=== PATIENT | female | born 1945 | race Caucasian/White ===

== ENCOUNTER → 2016-10-22 | Outpatient (CLI) | payer BC | END | disposition home or self-care (01) | LOC: C.LABSPEC 13:29 | PROVIDERS: ATTEND Obstetrics & Gynecology | DX: N89.8 Other specified noninflammatory disorders of vagina (principal) ==

== ENCOUNTER → 2016-12-23 | Outpatient (CLI) | payer BC ==
[2016-12-23 13:43] LABS: ESTIMATED AVERAGE GLUCOSE 131 mg/dl; HA1C FLAG Normal (Normal)
[2016-12-23 13:51] LABS: BLOOD UREA NITROGEN 22 mg/dl (7-18); BUN/CREATININE RATIO 18.6 (10-20); CALCIUM 9.3 mg/dl (8.5-10.1); CARBON DIOXIDE 29 mmol/L (21-32); CHLORIDE 107 mmol/L (98-107); CHOLESTEROL 160 mg/dl (0-200); GLUCOSE 97 mg/dl (70-99); SODIUM 142 mmol/L (136-145)
[2016-12-23 14:00] LABS: CHOLESTEROL/HDL RATIO 2.7; HDL CHOLESTEROL 59 mg/dl; TRIGLYCERIDES 117 mg/dl (0-150); VERY LOW DENSITY LIPOPROT CALC 23 mg/dl
== END | disposition home or self-care (01) ==
LOC: C.LABSPEC 12:42
PROVIDERS: ATTEND Internal Medicine
DX: E11.9 Type 2 diabetes mellitus without complications (principal); I10 Essential (primary) hypertension; E78.5 Hyperlipidemia, unspecified

== ENCOUNTER → 2016-12-29 | Outpatient (CLI) | payer BC ==
[2016-12-29 16:16] LABS: RATIO 41.5 mcg/mg (0-30.0)
== END | disposition home or self-care (01) ==
LOC: C.LABSPEC 14:37
PROVIDERS: ATTEND Internal Medicine
DX: E11.9 Type 2 diabetes mellitus without complications (principal)

== ENCOUNTER → 2017-02-19 | Outpatient (CLI) | payer BC ==
--- NOTE | 2017-02-19 16:17 | MAMMOGRAPHY REPORT ---
BILATERAL DIGITAL SCREENING MAMMOGRAM WITH CAD: 02/19/2017 CLINICAL HISTORY: Routine screening. Patient has no complaints. TECHNIQUE: Bilateral CC and MLO views were obtained. Current study was also evaluated with a Compute r Aided Detection (CAD) system. COMPARISON: Comparison is made to exams dated: 02/19/2016 mammogram, 02/15/2015 mammogram, 02/14/2014 m ammogram, 02/10/2013 mammogram, 01/08/2012 mammogram, and 03/27/2011 mammogram - [facility]. BREAST COMPOSITION: There are scattered areas of fibroglandular density in both breasts. FINDINGS: There is evidence of prior surgery within each breast. There is expected architectural dis tortion in each upper outer quadrant, and surgical clips remain in place within the right breast. Th ere is stable nodularity in the upper outer anterior aspect of each breast. Stable benign-appearing calcifications. No new suspicious mass, architectural distortion or cluster of microcalcifications i s seen. IMPRESSION: ACR BI-RADS CATEGORY 1: NEGATIVE There is no mammographic evidence of malignancy. A 1 year screening mammogram is recommended. The pa tient will receive written notification of the results. Approximately 10% of breast cancers are not detected with mammography. A negative mammographic report should not delay biopsy if a clinically suggestive mass is present. Lizbeth Bojorquez M.D. ay/:02/19/2017 13:01:21 Substation Operator Helper: Joy JIMENEZ(Viral)(Patricia)(BD), [facility] letter sent: Normal 1/2 BI-RADS Code: ACR BI-RADS Category 1: Negative
== END | disposition home or self-care (01) ==
LOC: C.MAMM 10:54
PROVIDERS: ATTEND Internal Medicine
DX: Z12.31 Encounter for screening mammogram for malignant neoplasm of breast (principal)

== ENCOUNTER → 2017-05-20 | Outpatient (CLI) | payer BC ==
[2017-05-20 13:43] LABS: BLOOD UREA NITROGEN 19 mg/dl (7-18); BUN/CREATININE RATIO 17.7 (10-20); CALCIUM 9.1 mg/dl (8.5-10.1); CARBON DIOXIDE 29 mmol/L (21-32); CHLORIDE 107 mmol/L (98-107); GLUCOSE 102 mg/dl (70-99); POTASSIUM 3.9 mmol/L (3.5-5.1); SODIUM 142 mmol/L (136-145)
[2017-05-20 13:46] LABS: CHOLESTEROL 172 mg/dl (0-200); CHOLESTEROL/HDL RATIO 2.6; HDL CHOLESTEROL 66 mg/dl; TRIGLYCERIDES 150 mg/dl (0-150); VERY LOW DENSITY LIPOPROT CALC 30 mg/dl
[2017-05-20 14:24] LABS: ESTIMATED AVERAGE GLUCOSE 131 mg/dl; HA1C FLAG Normal (Normal)
== END | disposition home or self-care (01) ==
LOC: C.LABSPEC 12:33
PROVIDERS: ATTEND Internal Medicine
DX: Z00.00 Encounter for general adult medical examination without abnormal findings (principal); E11.9 Type 2 diabetes mellitus without complications; I10 Essential (primary) hypertension; E78.5 Hyperlipidemia, unspecified

== ENCOUNTER → 2017-09-24 | Outpatient (CLI) | payer BC ==
[2017-09-24 12:59] LABS: HEMOGLOBIN A1C 6.1 % (4.5-5.6)
[2017-09-24 17:20] LABS: BLOOD UREA NITROGEN 18 mg/dl (7-18); CARBON DIOXIDE 29 mmol/L (21-32); CHOLESTEROL 193 mg/dl (0-200); GLUCOSE 98 mg/dl (70-99); POTASSIUM 4.2 mmol/L (3.5-5.1); SODIUM 140 mmol/L (136-145)
[2017-09-24 17:23] LABS: LDL CHOLESTEROL (DIRECT) 109 mg/dl
== END | disposition home or self-care (01) ==
LOC: C.LABSPEC 12:14
PROVIDERS: ATTEND Internal Medicine
DX: E78.5 Hyperlipidemia, unspecified (principal); E11.9 Type 2 diabetes mellitus without complications; I10 Essential (primary) hypertension

== ENCOUNTER → 2017-10-02 | Outpatient (CLI) | payer BC ==
--- NOTE | 2017-10-02 15:08 | MAMMOGRAPHY REPORT ---
UNILATERAL RIGHT DIGITAL DIAGNOSTIC MAMMOGRAM TOMOSYNTHESIS WITH CAD AND TARGETED RIGHT ULTRASOUND: CLINICAL HISTORY: The patient reports a burning/tingling sensation involving the right nipple and upp er outer quadrant for approximately one month. She denies any palpable lumps, skin changes, nipple d ischarge, or other complaints. TECHNIQUE: Breast tomosynthesis in addition to standard 2D mammography was performed. Current study was also evaluated with a Computer Aided Detection (CAD) system. Right CC and MLO 2-D and tomosynthe sis images were obtained. COMPARISON: Comparison is made to exams dated: 02/19/2017 mammogram, 02/19/2016 mammogram, 02/15/2015 ma mmogram, 02/14/2014 mammogram, 02/10/2013 mammogram, and 01/08/2012 mammogram - [facility]. BREAST COMPOSITION: There are scattered areas of fibroglandular density in the right breast. FINDINGS: Two square markers micheline the site of the burning/tingling in the right breast pointed out b y the patient. There are no suspicious masses, calcifications, or areas of architectural distortion noted in the right breast. There has been no significant interval change compared to prior exams. T here are stable postsurgical changes from surgical excision in the right upper outer quadrant, includ ing stable architectural distortion and surgical clips at the surgical bed. Small circumscribed pita gn-appearing masses are seen scattered throughout the right breast, not significantly changed and lik myra represent small cysts. Scattered benign-appearing right breast calcifications are also stable. Targeted ultrasound was performed of the area of the tingling/burning sensation pointed out by the pa tient involving the right upper outer quadrant and right subareolar region. There are expected post surgical changes at the surgical bed in the upper outer quadrant. In the right 10:00 periareolar annie ast, there is a round circumscribed hypoechoic mass with posterior acoustic enhancement measuring 4 x 3 mm, and an adjacent anechoic circumscribed 5 x 3 mm mass; these correspond with some of the stable nodularity mammographically which are benign given the stability and likely represent simple/complic ated cysts. There are no suspicious masses or other suspicious sonographic abnormalities evident. IMPRESSION: ACR BI-RADS CATEGORY 2: BENIGN, TARGETED ULTRASOUND ACR BI-RADS CATEGORY 2: BENIGN No suspicious mammographic or sonographic abnormality to explain right breast burning/tingling descri bed by the patient. There is no mammographic or targeted sonographic evidence of malignancy. Recomm end clinical follow-up for right breast symptoms, and recommend routine bilateral screening mammogram s due February 2018. The patient has been verbally notified of the results. Approximately 10% of breast cancers are not detected with mammography. A negative mammographic report should not delay biopsy if a clinically suggestive mass is present. Jessenia Leach M.D. ah/:10/02/2017 10:01:01 Touch Up Painter: Juana Watts, [facility] letter sent: Normal 1/2 BI-RADS Code: ACR BI-RADS Category 2: Benign Ultrasound BI-RADS: ACR BI-RADS Category 2: Benign
== END | disposition home or self-care (01) ==
LOC: C.MAMM 09:02
PROVIDERS: ATTEND Internal Medicine
DX: N64.59 Other signs and symptoms in breast (principal)

== ENCOUNTER → 2018-02-04 | Outpatient (CLI) | payer BC ==
[2018-02-04 14:20] LABS: BLOOD UREA NITROGEN 19 mg/dl (7-18); CALCIUM 9.1 mg/dl (8.5-10.1); CARBON DIOXIDE 30 mmol/L (21-32); CHOLESTEROL 157 mg/dl (0-200); CREATININE 1.19 mg/dl (0.60-1.20); GLUCOSE 97 mg/dl (70-99); LDL CHOLESTEROL (DIRECT) 85 mg/dl; POTASSIUM 4.2 mmol/L (3.5-5.1); SODIUM 140 mmol/L (136-145)
[2018-02-05 06:09] LABS: HEMOGLOBIN A1C 6.1 % (4.5-5.6)
== END | disposition home or self-care (01) ==
LOC: C.LABSPEC 12:26
PROVIDERS: ATTEND Internal Medicine
DX: E11.9 Type 2 diabetes mellitus without complications (principal); I10 Essential (primary) hypertension; E78.5 Hyperlipidemia, unspecified

== ENCOUNTER → 2018-02-08 | Outpatient (CLI) | payer BC ==
--- NOTE | 2018-02-09 15:42 | CODING QUERY NO DIAGNOSIS ---
TREATMENT RENDERED WITHOUT A DIAGNOSIS 46 To promote full compliance with coding requirements relating to patient care, physician participation is requested in all cases of auditing coder uncertainty. Please assist us with providing a diagnosis/symptom for the test(s) below: A diagnosis/symptom was not documented on your Order. A valid diagnosis/symptom is required to bill all insurances. Please remember that we are unable to code a diagnosis of rule out, probable, possible, questionable, or suspected. DOS 02/08/18 Tests that require a diagnosis: * URINE MICROALBUMIN DIAGNOSIS: * CREATININE RATIO DIAGNOSIS: Provider Signature: Date: Thank you [facility] Information Management Once completed, please kindly fax back to [phone] For questions please call [phone]
== END | disposition home or self-care (01) ==
LOC: C.LABSPEC 13:36
PROVIDERS: ATTEND Internal Medicine
DX: E11.9 Type 2 diabetes mellitus without complications (principal)

== ENCOUNTER 2023-01-02 12:38 | Observation (INO) ==
--- NOTE | 2023-01-02 13:30 | XRay Report ---
XR chest 1V portable HISTORY: Hypertension COMPARISON: None. FINDINGS: The lungs are clear. The cardiac silhouette is mildly enlarged. No focal lung consolidation s to suggest a pneumonia. No evidence for pulmonary edema. There are surgical clips within the right chest wall. IMPRESSION: Mild cardiomegaly. Otherwise, no acute process within the chest. ACT 112: Negative or not required by law. Electronically signed by: Florentino Castillo M.D. 01/02/2023 1:28 PM
[2023-01-02 13:53] LABS: Basophils # (auto) 0.06 K/uL (0-0.2); Basophils % (auto) 0.5 %; Eosinophils # (auto) 0.49 K/uL (0-0.50); Eosinophils % (auto) 4.3 %; Hematocrit (blood only) 45.5 % (37.0-47.0); Hemoglobin 14.8 g/dl (12.0-16.0); Immature Granulocytes # (auto) 0.07 K/uL (0.01-0.20); Immature Granulocytes % (auto) 0.6 %; Lymphocytes # (auto) 2.79 K/uL (1.2-3.4); Lymphocytes % (auto) 24.6 %; Mean Corpuscular Hemoglobin 30.3 pg (25.0-34.0); Mean Corpuscular Hgb Conc 32.5 g/dL (32.0-36.0); Mean Platelet Volume 9.7 fL (9.4-12.4); Monocytes # (auto) 0.71 K/uL (0.11-0.59); Monocytes % (auto) 6.3 %; Neutrophils % (auto) 63.7 %; Platelet Count 258 K/uL (130-400); RDW Coefficient of Variation 13.7 % (11.5-14.5); RDW Standard Deviation 46.7 fL (36.4-46.3); Red Blood Count 4.89 M/uL (4.20-5.40); White Blood Count 11.32 K/ul (4.8-10.8)
[2023-01-02 13:54] LABS: Appearance Urine Clear (Clear); Bacteria Urine Automated Negative (Negative); Bilirubin Urine Negative (Negative); Blood Urine 1+ (Negative); Color Urine Yellow; Epithelial Cell Urine Auto >30 /lpf (0-5); Glucose Urine UA Negative (Negative); Ketones Urine Negative (Negative); Leukocyte Esterase Urine Trace (Negative); Nitrite Urine Negative (Negative); Specific Gravity Urine 1.014 (1.000-1.030); Urobilinogen Urine Negative (Negative); pH Urine 7.5 (4.5-7.5)
[2023-01-02 14:00] LABS: Protein Urine 3+ (Negative)
[2023-01-02 14:09] LABS: Albumin Globulin Ratio 1.3 (0.9-2); Albumin Level 4.1 gm/dl (3.4-5.0); BUN Creatinine Ratio 17.9 (10-20); Bilirubin,Total 0.5 mg/dl (0.2-1.0); Calcium 9.6 mg/dl (8.6-10.3); Creatinine Clr Calc Pharmacy 46.5 ml/min; Est GFR (African American) 55.3 ml/min; Est GFR (Non-African American) 47.7 ml/min; Globulin 3.2 gm/dl (2.5-4.0); Potassium 4.1 mmol/L (3.5-5.1); Total Protein 7.3 gm/dl (6.0-8.3)
[2023-01-02 14:13] LABS: Troponin I High Sensitivity 9.6 pg/ml (0-14)
[2023-01-02] MEDS ORDERED: LABETALOL HCL IV 5 MG/ML 20ML IV STA ×2 (14:32→15:42)
--- NOTE | 2023-01-02 16:37 | Emergency Department Note ---
Impression & Plan Severe hypertension ED Provider Note INFORMANT: Patient ED PROVIDER(S): Luisito Dang MD CHIEF COMPLAINT: Hypertension PLAN: Disposition: Admitted Condition: Good Outpatient prescription management: none Referral: None MEDICAL DECISION MAKING: Patient presented emergency ferment with drastically elevated blood pressures. Thankfully she did not have any neurologic findings. Work-up was initiated. The patient had a nonfocal physical examination. Her twelve-lead ECG showed a sinus rhythm at 75 bpm without ischemia. Her CBC and chemistry panel along with cardiac troponin were negative for any gross abnormalities. Given the marked elevation of her blood pressure 240/140 range she was given a dose of IV labetalol and monitored. Her blood pressure did improve with this however it started to trend back up and went to 220/134. Patient was given a second dose of IV labetalol. Discussed the issue with the significant elevation of blood pressures and the fact that further management in the hospital is appropriate. Patient and family were in agreement. Consultation was [facility] with [facility]. Case was discussed and diagnostics were reviewed. Dr. West requested a renal artery duplex be ordered and this was done. Patient will be admitted for further management. Discussed with labor relations manager. Requires admission After review of the information above and other included data, I feel the patient disposition. Triage Nursing notes reviewed and agree them. Vital Signs: reviewed and remarkable for marked hypertension Prior /Outside records reviewed: none Differential diagnosis: Benign hypertension, hypertensive emergency, cardiovascular pathology, toxicologic, pheochromocytoma, electrolyte abnormality, renal disease, endorgan damage, as well as other pathologies. Diagnostics, as interpreted by me: EC Lead ECG performed and revealed Normal sinus rhythm at 75, normal [place], QRS normal. No elevation or depression. No PACs or PVCs Cardiac Monitoring: Cardiac monitoring ordered by me: The patient was placed on continuous cardiac monitoring and observed. It revealed a normal sinus rhythm at 83 beats per minute without ectopy or evidence of dysrhythmia. Medical decision rules: none Imaging studies: Chest x-ray. Findings: A chest x-ray was performed and revealed no pneumothorax, effusion, infiltrate, pulmonary edema, free air under the diaphragm, or wide mediastinum. Impression: No acute disease. HPI: The patient is a 77year old female who presents to the Emergency Room with complaints of hypertension. Was found at her primary care office when she went in for her 6-month visit. Patient states she has not taken her blood patient since her last well visit 6 months ago. She is on metoprolol and losartan. She has not missed any doses. The patient also notes the following associated symptoms, none. The patient has was given no additional medication for relieving factors. Current pain is rated as 0/10. Patient's blood pressure in the office was noted to be in the 240/140 range. Pt denies LOC, headache, fevers, chills, diaphoresis, visual changes, neck pain, chest pain, breathing difficulties, nausea, vomiting, abdominal pain, back pain, melena, hematochezia, new urinary symptoms, numbness, weakness, lymphadenopathy, rash, or other complaints. PAST MEDICAL HISTORY: See Below, high blood pressure, diabetes PAST SURGICAL HISTORY: See Below, SOCIAL HISTORY: See Below, non-smoker HOME MEDICATIONS: See Below ALLERGIES: See Below VITALS: See Below PHYSICAL EXAMINATION: GENERAL: Awake, alert, well-appearing, in no distress HENT: Normocephalic, atraumatic. Oropharynx unremarkable. EYES: Normal conjunctiva. Sclera non-icteric. PERRLA. EOMI. NECK: Inspection normal. Non-tender. Supple. No nuchal rigidity. FROM. No masses. RESPIRATORY: Clear to auscultation. No wheezes. No rales. Normal respiratory effort. CARDIAC: Normal rate. Normal rhythm. No murmurs. No rubs. Extremities warm and well perfused. Pulses equal. No JVD. GI: Soft, non-distended. No tenderness to palpation. No rebound or guarding. No masses. RECTAL: Deferred. MUSCULOSKELETAL: Atraumatic. Chest examination reveals no tenderness. The back is symmetrical on inspection without obvious abnormality. There is no CVA tenderness to palpation. No joint edema. LOWER EXTREMITIES: Calves are equal size bilaterally and non-tender. No edema. No discoloration. NEURO: Normal sensorium. No sensory or motor deficits noted. Speech normal. Normal rapid alternating movements. Cranial nerves II through XII intact. SKIN: No rash or jaundice noted. CRITICAL CARE: I have personally spent greater than 30 minutes of critical care time in the direct management of this patient. This includes bedside care, interpretation of diagnostic studies, and testing, discussion with consultants, patient, and family members, and other required patient management activities. These minutes are in excess of all separately billable procedures. Past Med/Surg History Surgical History (Updated 01/03/20 @ 12:14 by David Luna MD) History of dilation and curettage History of lumpectomy of right breast Family History (Updated 01/03/20 @ 12:19 by David Luna MD) Father Myocardial infarction Brother Myocardial infarction Denies family history of Ovarian cancer Breast cancer Colorectal cancer Social History (Updated 01/03/20 @ 12:19 by David Luna MD) Smoking Status: Never smoker Hx Alcohol Use: No Hx Substance Use: No marital status: / current occupational status: retired Feels Safe at Home: Yes Allergies Allergies Allergy/AdvReac Type Severity Reaction Status Date / Time diphenhydramine Allergy Unknown Verified 03/19/22 10:39 Home Meds Home Medications Medication Instructions Recorded Confirmed azelastine 137 mcg (0.1 %) nasal intranasal .Two sprays in each 01/03/20 03/19/22 spray aerosol nostril twice daily as needed PRN fluticasone propionate 50 intranasal .USE 2 SPRAYS IN EACH 01/03/20 03/19/22 mcg/actuation nasal NOSTRIL ONCE DAILY spray,suspension meclizine 12.5 mg tablet mg PO .TAKE 1-2 TABLETS Q 8 HOURS 01/03/20 03/19/22 NEEDED FOR VERTIGO. PRN metformin 1,000 mg tablet mg PO .TAKE 1 TABLET TWICE DAILY. 01/03/20 03/19/22 metoprolol tartrate 50 mg tablet mg PO .TAKE 1 TABLET EVERY 12 01/03/20 03/19/22 HOURS. multivit with min-folic 1 tab PO DAILY 01/03/20 03/19/22 acid-lutein 400 mcg-250 mcg chewable tablet (Centrum Silver) omega-3 fatty acids 1,000 mg 1,000 mg PO DAILY 01/03/20 03/19/22 capsule (Fish Oil Concentrate) oxybutynin chloride 5 mg tablet mg PO 01/03/20 03/19/22 pravastatin 20 mg tablet mg PO .TAKE 1 TABLET DAILY. 01/03/20 03/19/22 aspirin 81 mg chewable tablet 1 tab PO DAILY 03/19/22 03/19/22 Results & Data (ED) Vital Signs Vital Signs - 24 hr 01/02/23 12:47 01/02/23 14:55 Temperature 36.6 C Temperature Source Temporal Artery Scan Pulse Rate 81 84 Pulse Rhythm Regular Pulse Strength Normal Respiratory Rate 20 Respiratory Effort / Characteristics Non-Labored Spontaneous Respiratory Depth Normal Respiratory Pattern Regular Blood Pressure 224/144 H Blood Pressure Mean 170 Blood Pressure Position Sitting Pulse Oximetry 96 Oxygen Delivery Method Room Air Sepsis Recent Fever Within 48 Hours No Sepsis New/Unexplained Change in Mental Status N/A Sepsis Action Taken by Nursing No Action Required Laboratory Data 01/02/23 13:26 01/02/23 13:26 Lab Results 01/02/23 01/02/23 01/02/23 Range/Units 13:26 13:26 13:26 WBC 11.32 H (4.8-10.8) K/ul RBC 4.89 (4.20-5.40) M/uL Hgb 14.8 (12.0-16.0) g/dl Hct 45.5 (37.0-47.0) % MCV 93.0 (80.0-100.0) fL MCH 30.3 (25.0-34.0) pg MCHC 32.5 (32.0-36.0) g/dL RDW Std Deviation 46.7 H (36.4-46.3) fL RDW Coeff of Sung 13.7 (11.5-14.5) % Plt Count 258 (130-400) K/uL MPV 9.7 (9.4-12.4) fL Immature Gran % (Auto) 0.6 % Neut % (Auto) 63.7 % Lymph % (Auto) 24.6 % Reynolds % (Auto) 6.3 % Eos % (Auto) 4.3 % Baso % (Auto) 0.5 % Neut # (Auto) 7.20 H (1.40-6.50) K/uL Lymph # (Auto) 2.79 (1.2-3.4) K/uL Reynolds # (Auto) 0.71 H (0.11-0.59) K/uL Eos # (Auto) 0.49 (0-0.50) K/uL Baso # (Auto) 0.06 (0-0.2) K/uL Immature Gran # (Auto) 0.07 (0.01-0.20) K/uL Sodium 142 (136-145) mmol/L Potassium 4.1 (3.5-5.1) mmol/L Chloride 105 (98-107) mmol/L Carbon Dioxide 29 (21-32) mmol/L Anion Gap 8 (3-11) BUN 20 (6-23) mg/dl Creatinine 1.12 (0.6-1.2) mg/dl Est Cr Clr Drug Dosing 46.5 ml/min Est GFR ( Amer) 55.3 ml/min Est GFR (Non-Af Amer) 47.7 ml/min BUN/Creatinine Ratio 17.9 (10-20) Glucose 104 H (70-99(Fasting)) mg/dl Calcium 9.6 (8.6-10.3) mg/dl Total Bilirubin 0.5 (0.2-1.0) mg/dl AST 29 (13-39) U/L ALT 28 (7-52) U/L Alkaline Phosphatase 88 (34-104) U/L Troponin I High Sens 9.6 (0-14) pg/ml Total Protein 7.3 (6.0-8.3) gm/dl Albumin 4.1 (3.4-5.0) gm/dl Globulin 3.2 (2.5-4.0) gm/dl Albumin/Globulin Ratio 1.3 (0.9-2) Urine Color Yellow Urine Appearance Clear (Clear) Urine pH 7.5 (4.5-7.5) Ur Specific [place] 1.014 (1.000-1.030) Urine Protein 3+ H (Negative) Urine Glucose (UA) Negative (Negative) Urine Ketones Negative (Negative) Urine Blood 1+ H (Negative) Urine Nitrite Negative (Negative) Urine Bilirubin Negative (Negative) Urine Urobilinogen Negative (Negative) Ur Leukocyte Esterase Trace H (Negative) Urine WBC (Auto) 5-10 H (0-5) /hpf Urine RBC (Auto) 10-30 H (0-4) /hpf U Hyaline Cast (Auto) 1-5 (0-5) /lpf U Epithel Cells (Auto) >30 H (0-5) /lpf Urine Bacteria (Auto) Negative (Negative) Administered Medications Discontinued Medications Labetalol HCl (Labetalol Hcl Iv 5 Mg/Ml 20ml) 10 mg IV NOW STA Stop: 01/02/23 14:33 Last Admin: 01/02/23 14:45 Dose: 10 mg Documented By: SANJAY Co-signed By: SUNSHINE Labetalol HCl (Labetalol Hcl Iv 5 Mg/Ml 20ml) 10 mg IV NOW STA Stop: 01/02/23 15:43 Last Admin: 01/02/23 15:52 Dose: 10 mg Documented By: KAVIN Co-signed By: TAN Imaging Data Radiologist's Impression: Chest X-Ray 01/02/23 13:00 XR chest 1V portable HISTORY: Hypertension COMPARISON: None. FINDINGS: The lungs are clear. The cardiac silhouette is mildly enlarged. No focal lung consolidations to suggest a pneumonia. No evidence for pulmonary edema. There are surgical clips within the right chest wall. IMPRESSION: Mild cardiomegaly. Otherwise, no acute process within the chest. ACT 112: Negative or not required by law. Electronically signed by: Florentino Castillo M.D. 01/02/2023 1:28 PM Discharge Plan Visit Data Chief Complaint: Hypertension Stated Complaint: HIGH BP, REF BY DR LEON ED Provider: Luisito Dang Discharge Problem: Severe hypertension Forms Stand Alone Forms: My [facility] Prescriptions Prescriptions: No Action Centrum Silver 400-250 mcg tablet,chewable 1 tab PO DAILY omega-3 fatty acids [Fish Oil Concentrate] 1,000 mg capsule 1,000 mg PO DAILY meclizine 12.5 mg tablet PO .TAKE 1-2 TABLETS Q 8 HOURS NEEDED FOR VERTIGO. PRN fluticasone propionate 50 mcg/actuation spray,suspension INTNAS .USE 2 SPRAYS IN EACH NOSTRIL ONCE DAILY azelastine 137 mcg (0.1 %) aerosol,spray INTNAS .Two sprays in each nostril twice daily as needed PRN oxybutynin chloride 5 mg tablet PO metoprolol tartrate 50 mg tablet PO .TAKE 1 TABLET EVERY 12 HOURS. pravastatin 20 mg tablet PO .TAKE 1 TABLET DAILY. metformin 1,000 mg tablet PO .TAKE 1 TABLET TWICE DAILY. aspirin 81 mg tablet,chewable 1 tab PO DAILY Referrals Referrals: Joy Curiel MD [Primary Care Provider] -
[2023-01-02] MEDS ORDERED: hydrALAZINE HCL 20 MG/ML VIAL IV STA (17:03)
--- NOTE | 2023-01-02 17:09 | History & Physical Report ---
Date of Service January 02, 2023 Assessment & Plan (1) Severe hypertension: Plan: Asymptomatic severe hypertension, Acute/Unstable - Observation to PCU - Heart healthy (low salt)/DMT2 diet has been ordered - VS per protocol - CMP reviewed, renal function preserved, potassium WNL - Initially given labetolol 10mg IV x2 doses in ED, will give a stat dose of hydralazine 10mg IV x1 now - Increase Losartan to 100mg daily to start tomorrow morning - Continue Metoprolol Tartrate 75mg BID - Add Hydrochlorothiazide 25mg daily to start in AM - Renal artery duplex ordered as requested, results pending - Obtain carotid artery duplex to exclude carotid artery stenosis - Chest pain free and EKG w/o acute ischemic changes - Hs troponin reviewed, normal at 9.6 (2) Diabetes mellitus: Plan: Chronic/stable - Hemoglobin a1c from November 2021 was 6.2% - Controlled on Metformin 1000mg BID, continue - Check BSG AC and HS, add coverage for BSG >180 (3) Hyperlipidemia: Plan: Chronic/stable - Continue statin therapy (4) Leukocytosis: Plan: Acute/unstable - CBC reviewed, minimal elevation of wbc at 11.32 with left shift - UA does not appear grossly infected, appears contaminated and has chronic frequency but no dysuria, hematuria, odor, etc. - CXR shows mild cardiomegaly w/o other acute cardiopulmonary abnormalities and pt has no respiratory symptoms - Repeat in AM Plan Provide DVT ppx with Lovenox. AM labs have been ordered. Above plan of care has been d/w Dr. West who has also seen and evaluated this patient. Further orders will be implemented as warranted. History of Present Illness Chief Complaint: elevated BP Primary Care Provider: Joy Curiel MD Sabrina Medina is a 77 yo F with a pmhx of HTN, DMT2, h/o acoustic neuroma, and HLD who presents to the ER today sent from her PCP's office due to elevated/uncontrolled blood pressure. Patient reports that she went for her routine check up in the office today, states that they "didn't like my blood pressure" and sent her here. Upon arrival patient was noted to have a BP of 224/144 mmHg. Patient notes that she does not routinely check her blood pressure at home and would've last had it checked 6 months ago when she saw her PCP. She denies increased salt intake, weight gain, or swelling in her legs. She denies headache, chest pain, palpitations, dyspnea, focal weakness, numbness or tingling. She does have a h/o of an acoustic neuroma that was treated with radiation and is being monitored periodically via serial MRIs. She has a h/o HTN that is managed with Metoprolol Tartrate 75mg BID and Losartan 50mg daily. She has never been on a diuretic. After two doses of Labetolol 10mg IV in the ER, her BP remains persistently elevated in the 220s systolic. A renal artery duplex has been ordered and results are pending. She has been referred for admission to the hospitalist service for further treatment. Allergies Allergy/AdvReac Type Severity Reaction Status Date / Time diphenhydramine Allergy Anaphylaxis Verified 01/02/23 17:25 Home Medications Medication Instructions Recorded Confirmed Type oxybutynin chloride 5 mg tablet 5 mg PO QPM 01/03/20 01/02/23 History aspirin 81 mg tablet,delayed 81 mg PO QPM 01/02/23 01/02/23 History release losartan 50 mg tablet 50 mg PO DAILY 01/02/23 01/02/23 History metformin 500 mg tablet 500 mg PO BID 01/02/23 01/02/23 History metoprolol tartrate 50 mg tablet 75 mg PO BID 01/02/23 01/02/23 History multivitamin 1 tab PO QAM 01/02/23 01/02/23 History omega 2-gkq-inz-fish oil 1,000 mg 1 cap PO BID 01/02/23 01/02/23 History (120 mg-180 mg) capsule (Fish Oil) pravastatin 20 mg tablet 20 mg PO QPM 01/02/23 01/02/23 History Past Med/Surg History Medical History (Updated 01/02/23 @ 17:20 by Briana Recio PA-C) Allergic rhinitis Depression with anxiety Diabetes mellitus Hyperlipidemia Hypertension Left asymmetrical SNHL Vestibular schwannoma Surgical History (Updated 01/03/20 @ 12:14 by David Luna MD) History of dilation and curettage History of lumpectomy of right breast Family History (Updated 01/03/20 @ 12:19 by David Luna MD) Father Myocardial infarction Brother Myocardial infarction Denies family history of Ovarian cancer Breast cancer Colorectal cancer Social History (Updated 01/03/20 @ 12:19 by David Luna MD) Smoking Status: Never smoker Hx Alcohol Use: No Hx Substance Use: No marital status: / current occupational status: retired Feels Safe at Home: Yes Physical Exam Physical Exam: GENERAL: 77 yo obese WF. NAD. LUNGS: Clear to auscultation bilaterally w/o w/r/r CARDIOVASCULAR: Regular rate and rhythm w/o m/g/r EXTREMITIES: No edema. Non-tender. Peripheral pulses +2/4. Results & Data Results & Data Vital Signs (Past 12 Hours) Vital Signs Temp Pulse Resp BP Pulse Ox O2 Del Method 01/02/23 16:30 83 17 96 01/02/23 16:30 185/114 H 01/02/23 16:25 202/119 H 01/02/23 16:25 84 18 95 01/02/23 16:20 186/127 H 01/02/23 16:20 86 16 95 01/02/23 16:16 84 14 01/02/23 16:16 213/120 H 01/02/23 16:11 189/111 H 01/02/23 16:11 88 18 01/02/23 16:05 204/119 H 01/02/23 16:05 80 14 95 01/02/23 16:00 78 17 94 01/02/23 16:00 200/109 H 01/02/23 15:56 166/108 H 01/02/23 15:56 83 13 95 01/02/23 15:50 191/116 H 01/02/23 15:50 82 18 94 01/02/23 15:46 187/121 H 01/02/23 15:46 79 20 95 01/02/23 15:41 220/134 H 01/02/23 15:41 81 18 94 01/02/23 15:35 174/116 H 01/02/23 15:35 81 20 96 01/02/23 15:30 79 18 94 01/02/23 15:30 188/109 H 01/02/23 15:25 189/113 H 01/02/23 15:25 81 12 94 01/02/23 15:20 80 17 94 01/02/23 15:20 185/110 H 01/02/23 15:15 78 19 94 01/02/23 15:15 192/110 H 01/02/23 15:10 84 17 95 01/02/23 15:10 199/109 H 01/02/23 15:05 196/119 H 01/02/23 15:05 80 19 94 01/02/23 15:00 83 16 94 01/02/23 15:00 195/124 H 01/02/23 14:55 198/119 H 01/02/23 14:55 79 17 94 01/02/23 14:50 195/123 H 01/02/23 14:50 82 17 95 01/02/23 14:46 205/131 H 01/02/23 14:46 79 30 H 95 01/02/23 14:31 83 20 96 01/02/23 14:30 236/139 H 01/02/23 14:55 84 01/02/23 12:47 36.6 C 81 20 224/144 H 96 Room Air Laboratory Results 01/02/23 13:26 01/02/23 13:26 Diagnostic Findings Chest X-Ray 01/02/23 13:00 XR chest 1V portable HISTORY: Hypertension COMPARISON: None. FINDINGS: The lungs are clear. The cardiac silhouette is mildly enlarged. No focal lung consolidations to suggest a pneumonia. No evidence for pulmonary edema. There are surgical clips within the right chest wall. IMPRESSION: Mild cardiomegaly. Otherwise, no acute process within the chest. ACT 112: Negative or not required by law. Electronically signed by: Florentino Castillo M.D. 01/02/2023 1:28 PM Supervising Physician Co-Signing Physician Notes Patient seen and examined, chart reviewed, case discussed with Briana Recio PA-C and I agree with the assessment and plan as above except as otherwise noted Labs and images reviewed 77-year-old female who presents with asymptomatic severe hypertension. Denies headache, chest pressure, chest pain, lightheadedness, dizziness, confusion, nausea, vomiting or other symptoms. Was noted to have high blood pressure over 200 by her PCP and was referred to the ER. Takes metoprolol and losartan at home, has taken these. Has a history of acoustic neuroma with hearing loss in her left ear, otherwise has no change in vision, hearing, sensation, or strength. Last blood pressure check was a couple of months ago, she is not sure how long her blood pressure has been. Heart rate is regular, lungs are clear. She answers questions appropriately at the bedside. Agree with recommendations above. We will bring down slowly as long as she remains asymptomatic, will check renal artery and carotid ultrasounds for KENIA/carotid stenosis. HCTZ started, hydralazine is on-call. Agree with above PG Care Time/CCT Total # of Minutes Spent Total Time Spent with Patient: Total time spent is greater than 50% in coordination of care (as documented) at patient's floor/unit and/or counseling patient: Coding Level of Care Code 09462 INT INP/OBS CARE 375MIN Diagnoses Severe hypertension I10 Diabetes mellitus E11.9 Hyperlipidemia E78.5 Leukocytosis D72.829
[2023-01-02] MEDS ORDERED: POLYETHYLENE (MIRALAX) 17 GM PACK PO PRN (18:38)
[2023-01-02] MEDS ORDERED: GLUCOSE 10 TAB/TUBE PO PRN (18:38)
[2023-01-02] MEDS ORDERED: ALUMINUM/MAGNESIUM SUSP 30 ML UDC PO PRN (18:38)
[2023-01-02] MEDS ORDERED: GLUCOSE 40% GEL 15 GM TUBE PO PRN (18:38)
[2023-01-02] MEDS ORDERED: MAGNESIUM HYDROXIDE SUSP 30 ML UDC PO PRN (18:38)
[2023-01-02] MEDS ORDERED: ONDANSETRON INJ 2 MG/ML 2 ML VIAL IV PRN (18:38)
[2023-01-02] MEDS ORDERED: DEXTROSE 50% 50 ML SYRINGE IV PRN (18:38)
[2023-01-02] MEDS ORDERED: CARBOHYDRATES FOR HYPOGLYCEMIA PO PRN (18:38)
[2023-01-02] MEDS ORDERED: GLUCAGON FOR INJ 1 MG VIAL SQ PRN (18:38)
[2023-01-02] MEDS: hydroCHLOROthiazide 25 MG TAB PO SCH (19:27)
[2023-01-02] MEDS: ACETAMINOPHEN 325 MG TAB PO PRN (19:35)
[2023-01-02] MEDS: ASPIRIN 81 MG ECTAB PO SCH (21:12)
[2023-01-02] MEDS: metFORMIN HCL 500 MG TAB PO SCH (21:12)
[2023-01-02] MEDS: METOPROLOL TARTRATE 25 MG TAB PO SCH (21:12)
[2023-01-02] MEDS: oxyBUTYnin chloride 5 MG TAB PO SCH (22:08)
[2023-01-02] MEDS: PRAVASTATIN SOD 20 MG TAB PO SCH (23:18)
[2023-01-03] MEDS: ACETAMINOPHEN 325 MG TAB PO PRN ×2 (00:46→16:46)
--- NOTE | 2023-01-03 06:28 | Electrocardiogram Report ---
Test Reason : Blood Pressure : / mmHG Vent. Rate : 075 BPM Atrial Rate : 075 BPM P-R Int : 168 ms QRS Dur : 084 ms QT Int : 374 ms P-R-T Axes : 033 -04 036 degrees QTc Int : 417 ms Normal sinus rhythm Low voltage QRS Borderline ECG When compared with ECG of 19-JAN-1996 18:25, Questionable change in QRS axis Confirmed by Kamlesh Schultz ([id number]) on 01/03/2023 6:28:15 AM Referred By: Joy Curiel Confirmed By:Kamlesh Schultz
--- NOTE | 2023-01-03 06:31 | Ultrasound Report ---
ULTRASOUND OF THE CAROTID ARTERIES CLINICAL HISTORY: Hypertensive urgency. COMPARISON STUDY: No priors. TECHNIQUE: Real-time, grayscale, and color Doppler sonography of the carotid arteries is performed. I mages are reviewed in the transverse and longitudinal planes. FINDINGS: The carotid arteries are patent bilaterally and demonstrate antegrade flow. There is no significant a therosclerotic plaque identified. Normal doppler arterial waveforms are seen throughout. Velocity maura surements are listed below. Common carotid peak systolic velocity (cm/sec): RIGHT: 61 LEFT: 96 ICA proximal peak systolic velocity (cm/sec): RIGHT: 37 LEFT: 44 ICA mid peak systolic velocity (cm/sec): RIGHT: 33 LEFT: 35 ICA distal peak systolic velocity (cm/sec): RIGHT: 34 LEFT: 47 ICA/CC peak systolic ratio: RIGHT: 0.6 LEFT: 0.5 Antegrade flow was shown in the vertebral arteries. The external carotid arteries are patent. IMPRESSION: 1. There is no sonographic evidence of hemodynamically significant stenosis in the right or left ace tid arterial system. 2. Antegrade flow is shown in the vertebral arteries. ACT 112: Negative or not required by law. Electronically signed by: Dae Topete M.D. 01/03/2023 6:29 AM
--- NOTE | 2023-01-03 06:33 | Ultrasound Report ---
DOPPLER ULTRASOUND OF THE RENAL ARTERIES CLINICAL HISTORY: Malignant hypertension. COMPARISON STUDY: No priors. TECHNIQUE: Doppler sonography of the renal arteries was performed to assess renal artery stenosis. Im ages are reviewed in the transverse and longitudinal planes. FINDINGS: The kidneys appear normal in size and echotexture. The right kidney measures 10.6 cm in length and th e left kidney measures 11.6 cm in length. There is no hydronephrosis. A 2.7 cm cyst is noted on the l eft. On the right, intrarenal arterial resistive indices range from 0.66 to 0.69. Intrarenal arterial wave forms are normal with brisk upstrokes. The right renal arterial waveform is normal, and velocities wi thin the right renal artery measure up to 99 cm/sec. The right renal vein is patent. On the left, intrarenal arterial resistive indices range from 0.54 to 0.68. Intrarenal arterial wave forms are normal with brisk upstrokes. The left renal arterial waveform is normal, and velocities wit hin the left renal artery measure up to 61 cm/sec. The left renal vein is patent. The abdominal aorta is patent. Velocities within the abdominal aorta measure up to 84 cm/s. IMPRESSION: There is no sonographic evidence of renal artery stenosis. ACT 112: Negative or not required by law. Electronically signed by: Dae Topete M.D. 01/03/2023 6:32 AM
[2023-01-03 06:35] LABS: Basophils # (auto) 0.03 K/uL (0-0.2); Basophils % (auto) 0.3 %; Eosinophils # (auto) 0.25 K/uL (0-0.50); Eosinophils % (auto) 2.4 %; Hematocrit (blood only) 39.5 % (37.0-47.0); Immature Granulocytes # (auto) 0.04 K/uL (0.01-0.20); Immature Granulocytes % (auto) 0.4 %; Lymphocytes # (auto) 2.95 K/uL (1.2-3.4); Lymphocytes % (auto) 27.9 %; Mean Corpuscular Hemoglobin 30.2 pg (25.0-34.0); Mean Corpuscular Hgb Conc 32.9 g/dL (32.0-36.0); Mean Corpuscular Volume 91.6 fL (80.0-100.0); Mean Platelet Volume 9.7 fL (9.4-12.4); Monocytes # (auto) 0.65 K/uL (0.11-0.59); Monocytes % (auto) 6.1 %; Neutrophils # (auto) 6.67 K/uL (1.40-6.50); Neutrophils % (auto) 62.9 %; Platelet Count 248 K/uL (130-400); RDW Coefficient of Variation 13.5 % (11.5-14.5); RDW Standard Deviation 45.9 fL (36.4-46.3); Red Blood Count 4.31 M/uL (4.20-5.40); White Blood Count 10.59 K/ul (4.8-10.8)
[2023-01-03 06:49] LABS: BUN Creatinine Ratio 16.7 (10-20); Calcium 8.9 mg/dl (8.6-10.3); Creatinine Clr Calc Pharmacy 50.3 ml/min; Est GFR (African American) 54.1 ml/min; Est GFR (Non-African American) 46.7 ml/min; Magnesium 1.6 mg/dl (1.7-2.4); Potassium 3.9 mmol/L (3.5-5.1)
[2023-01-03] MEDS ORDERED: metFORMIN HCL 500 MG TAB PO SCH (08:00)
[2023-01-03] MEDS: oxyBUTYnin chloride 5 MG TAB PO SCH ×2 (08:56→20:19)
[2023-01-03] MEDS: ENOXAPARIN INJ 40 MG/0.4 ML SYR SQ SCH (08:56)
[2023-01-03] MEDS: metFORMIN HCL 500 MG TAB PO SCH ×2 (08:56→16:46)
[2023-01-03] MEDS: METOPROLOL TARTRATE 25 MG TAB PO SCH ×2 (08:56→20:18)
[2023-01-03] MEDS: hydroCHLOROthiazide 25 MG TAB PO SCH (08:56)
[2023-01-03] MEDS: LOSARTAN POTASSIUM 50 MG TAB PO SCH (08:56)
[2023-01-03] MEDS ORDERED: hydroCHLOROthiazide 25 MG TAB PO SCH (09:00)
--- NOTE | 2023-01-03 15:06 | Hospitalist Progress Note ---
Date of Service January 03, 2023 Assessment & Plan (1) Severe hypertension: Plan: Asymptomatic severe hypertension - Continue Heart healthy (low salt)/DMT2 diet has been ordered - Treated with labetolol 10mg IV x2 doses and hydralazine 10mg IV x1 in the ED - Continue Losartan to 100mg daily (50mg prior) - Continue Metoprolol Tartrate 75mg BID - Continue Hydrochlorothiazide 25mg in AM (new medication) - Renal artery duplex with no evidence of KENIA - Carotid artery duplex with no carotid artery stenosis - Labs reviewed today Mg slightly decreased t 1.6 - Mag ox 400mg one daily - Discussed adequate po water intake - Elevated legs, Luis Hose, low sodium diet - CBC with normal WBC 10.5, normal H&H 13 & 39.5 BMP normal electrolytes Urine culture with mixed probable skin eder (2) Diabetes mellitus: Plan: Chronic/stable - Hemoglobin a1c from November 2021 was 6.2% - Controlled on Metformin 500mg BID, continue - Check BSG AC and HS, add coverage for BSG >180 BS have been stable at 120 or less (3) Hyperlipidemia: Plan: Chronic/stable - Continue Pravastatin 20mg (4) Leukocytosis: Plan: Acute/unstable - CBC reviewed, minimal elevation of wbc at 11.32 with left shift - WBC improved today to 10.5 - UA does not appear grossly infected, Culture contaminated and has chronic frequency but no dysuria, hematuria, odor, etc. - CXR shows mild cardiomegaly w/o other acute cardiopulmonary abnormalities and pt has no respiratory symptoms - Repeat U/A Plan Provide DVT ppx with Lovenox. AM labs have been ordered. Above plan of care has been d/w Dr. West who has also seen and evaluated this patient. Further ord ers will be implemented as warranted. Admission and Anticipated Discharge Date Admission Date: January 02, 2023 Subjective Patient is awake sitting at the side of her bed with her dtr and 2 grandchildren at the bedside. Review of Systems Review of Systems: Patient denies any chest pain, SOB, Nausea, vomiting, headache or abdominal pain. She denies any visiion changes or loss, paresthesias anesthesias or weakness. She admits to polyuria. She admits t not drinking much fluids during the day. All other ROS negative unless stated + above. Physical Exam Constitutional: WD/WN, vitals as above Neck: trachea midline, no thyromegaly Respiratory: normal respiratory effort, lungs clear to auscultation Cardiovascular: Rate/Rhythm: regular rate and regular rhythm Heart Sounds: normal S1 and normal S2; no murmur Extremities: normal capillary refill and + edema; no calf tenderness Gastrointestinal (Abdomen): normal bowel sounds, soft, nontender, no hepatosplenomegaly Neurologic: PERRL, EOMI, accommodation nl, no face palsy, no dysarthria Psychiatric: A+Ox3, euthymic affect Results & Data Results & Data Vital Signs (Past 12 Hours) Vital Signs Temp Pulse Resp BP Pulse Ox O2 Del Method 01/03/23 11:36 37.1 C 74 18 152/90 H 94 Room Air 01/03/23 08:00 36.6 C 73 18 170/97 H 95 Room Air Laboratory Results Abnormal lab results 01/02/23 01/03/23 01/03/23 Range/Units 20:41 05:34 05:34 Neut # (Auto) 6.67 H (1.40-6.50) K/uL [place] # (Auto) 0.65 H (0.11-0.59) K/uL Glucose 117 H (70-99(Fasting)) mg/dl POC Glucose 138 H (70-99) mg/dl Magnesium 1.6 L (1.7-2.4) mg/dl 01/03/23 01/03/23 Range/Units 07:40 11:48 Neut # (Auto) (1.40-6.50) K/uL [place] # (Auto) (0.11-0.59) K/uL Glucose (70-99(Fasting)) mg/dl POC Glucose 112 H 104 H (70-99) mg/dl Magnesium (1.7-2.4) mg/dl Diagnostic Findings Carotid Doppler Study 01/03/23 00:00 ULTRASOUND OF THE CAROTID ARTERIES CLINICAL HISTORY: Hypertensive urgency. COMPARISON STUDY: No priors. TECHNIQUE: Real-time, grayscale, and color Doppler sonography of the carotid arteries is performed. Images are reviewed in the transverse and longitudinal planes. FINDINGS: The carotid arteries are patent bilaterally and demonstrate antegrade flow. There is no significant atherosclerotic plaque identified. Normal doppler arterial waveforms are seen throughout. Velocity measurements are listed below. Common carotid peak systolic velocity (cm/sec): RIGHT: 61 LEFT: 96 ICA proximal peak systolic velocity (cm/sec): RIGHT: 37 LEFT: 44 ICA mid peak systolic velocity (cm/sec): RIGHT: 33 LEFT: 35 ICA distal peak systolic velocity (cm/sec): RIGHT: 34 LEFT: 47 ICA/CC peak systolic ratio: RIGHT: 0.6 LEFT: 0.5 Antegrade flow was shown in the vertebral arteries. The external carotid arteries are patent. IMPRESSION: 1. There is no sonographic evidence of hemodynamically significant stenosis in the right or left carotid arterial system. 2. Antegrade flow is shown in the vertebral arteries. ACT 112: Negative or not required by law. Electronically signed by: Dae Topete M.D. 01/03/2023 6:29 AM Renal Artery Duplex 01/03/23 00:00 DOPPLER ULTRASOUND OF THE RENAL ARTERIES CLINICAL HISTORY: Malignant hypertension. COMPARISON STUDY: No priors. TECHNIQUE: Doppler sonography of the renal arteries was performed to assess renal artery stenosis. Images are reviewed in the transverse and longitudinal planes. FINDINGS: The kidneys appear normal in size and echotexture. The right kidney measures 10.6 cm in length and the left kidney measures 11.6 cm in length. There is no hydronephrosis. A 2.7 cm cyst is noted on the left. On the right, intrarenal arterial resistive indices range from 0.66 to 0.69. Intrarenal arterial waveforms are normal with brisk upstrokes. The right renal arterial waveform is normal, and velocities within the right renal artery measure up to 99 cm/sec. The right renal vein is patent. On the left, intrarenal arterial resistive indices range from 0.54 to 0.68. Intrarenal arterial waveforms are normal with brisk upstrokes. The left renal arterial waveform is normal, and velocities within the left renal artery measure up to 61 cm/sec. The left renal vein is patent. The abdominal aorta is patent. Velocities within the abdominal aorta measure up to 84 cm/s. IMPRESSION: There is no sonographic evidence of renal artery stenosis. ACT 112: Negative or not required by law. Electronically signed by: Dae Topete M.D. 01/03/2023 6:32 AM PG Care Time/CCT Total # of Minutes Spent Total Time Spent with Patient: Total time spent is greater than 50% in coordination of care (as documented) at patient's floor/unit and/or counseling patient: Coding Level of Care Code 77917 SUB INP/OBS CARE 2MIN Diagnoses Severe hypertension I10 Diabetes mellitus E11.9 Hyperlipidemia E78.5 Leukocytosis D72.829
[2023-01-03] MEDS: MAGNESIUM OXIDE 400 MG TAB PO SCH (16:46)
[2023-01-03] MEDS: ASPIRIN 81 MG ECTAB PO SCH (20:18)
[2023-01-03] MEDS: PRAVASTATIN SOD 20 MG TAB PO SCH (20:20)
[2023-01-04 06:26] LABS: Hematocrit (blood only) 43.5 % (37.0-47.0); Hemoglobin 14.1 g/dl (12.0-16.0); Mean Corpuscular Hemoglobin 29.9 pg (25.0-34.0); Mean Corpuscular Hgb Conc 32.4 g/dL (32.0-36.0); Mean Corpuscular Volume 92.4 fL (80.0-100.0); Mean Platelet Volume 9.7 fL (9.4-12.4); Platelet Count 247 K/uL (130-400); RDW Coefficient of Variation 13.8 % (11.5-14.5); RDW Standard Deviation 46.6 fL (36.4-46.3); Red Blood Count 4.71 M/uL (4.20-5.40); White Blood Count 9.55 K/ul (4.8-10.8)
[2023-01-04 06:38] LABS: BUN Creatinine Ratio 19.2 (10-20); Calcium 9.2 mg/dl (8.6-10.3); Creatinine Clr Calc Pharmacy 39.2 ml/min; Est GFR (African American) 40.1 ml/min; Est GFR (Non-African American) 34.6 ml/min; Magnesium 1.8 mg/dl (1.7-2.4); Potassium 4.5 mmol/L (3.5-5.1)
[2023-01-04 06:48] LABS: Thyroid Stimulating Hormone 4.509 uIu/ml (0.300-4.500)
[2023-01-04 07:23] LABS: T4 Free Thyroxine 0.75 ng/dl (0.61-1.60)
[2023-01-04] MEDS: METOPROLOL TARTRATE 25 MG TAB PO SCH (08:16)
[2023-01-04] MEDS: metFORMIN HCL 500 MG TAB PO SCH (08:16)
[2023-01-04] MEDS: ENOXAPARIN INJ 40 MG/0.4 ML SYR SQ SCH (08:16)
[2023-01-04] MEDS: hydroCHLOROthiazide 25 MG TAB PO SCH (08:16)
[2023-01-04] MEDS: MAGNESIUM OXIDE 400 MG TAB PO SCH (08:16)
[2023-01-04] MEDS: LOSARTAN POTASSIUM 50 MG TAB PO SCH (08:16)
[2023-01-04] MEDS: oxyBUTYnin chloride 5 MG TAB PO SCH (08:16)
--- NOTE | 2023-01-04 12:25 | Discharge Summary ---
Date of Service January 04, 2023 Admission HPI Per Admitting Provider Sabrina Medina is a 77 yo F with a pmhx of HTN, DMT2, h/o acoustic neuroma, and HLD who presents to the ER today sent from her PCP's office due to elevated/uncontrolled blood pressure. Patient reports that she went for her routine check up in the office today, states that they "didn't like my blood pressure" and sent her here. Upon arrival patient was noted to have a BP of 224/144 mmHg. Patient notes that she does not routinely check her blood pressure at home and would've last had it checked 6 months ago when she saw her PCP. She denies increased salt intake, weight gain, or swelling in her legs. She denies headache, chest pain, palpitations, dyspnea, focal weakness, numbness or tingling. She does have a h/o of an acoustic neuroma that was treated with radiation and is being monitored periodically via serial MRIs. She has a h/o HTN that is managed with Metoprolol Tartrate 75mg BID and Losartan 50mg daily. She has never been on a diuretic. After two doses of Labetolol 10mg IV in the ER, her BP remains persistently elevated in the 220s systolic. A renal artery duplex has been ordered and results are pending. She has been referred for admission to the hospitalist service for further treatment. Admission Exam Per Admitting Provider GENERAL: 77 yo obese WF. NAD. LUNGS: Clear to auscultation bilaterally w/o w/r/r CARDIOVASCULAR: Regular rate and rhythm w/o m/g/r EXTREMITIES: No edema. Non-tender. Peripheral pulses +2/4. Principal Diagnosis Severe Hypertension Discharge Exam Constitutional WD/WN, vitals as above Neck trachea midline, no thyromegaly Respiratory normal respiratory effort, lungs clear to auscultation Cardiovascular Rate/Rhythm: regular rate and regular rhythm Heart Sounds: normal S1 and normal S2; no murmur Extremities: normal capillary refill and + edema; no calf tenderness Gastrointestinal (Abdomen) normal bowel sounds, soft, nontender, no hepatosplenomegaly Neurologic PERRL, EOMI, accommodation nl, no face palsy, no dysarthria Psychiatric A+Ox3, euthymic affect Discharge Data Allergies Allergy/AdvReac Type Severity Reaction Status Date / Time diphenhydramine Allergy Anaphylaxis Verified 01/02/23 17:25 Consultations 01/02/23 15:48 ED Decision to Admit Stat Ordered Studies 01/03/23 US carotid doppler BI Stat US duplex renal artery Stat Hospital Course (1) Severe hypertension: Asymptomatic severe hypertension - Continue Heart healthy (low salt)/DMT2 diet has been ordered - Treated with labetolol 10mg IV x2 doses and hydralazine 10mg IV x1 in the ED - Continue Losartan to 100mg daily (50mg prior) - Continue Metoprolol Tartrate 75mg BID - Continue Hydrochlorothiazide 25mg in AM (new medication) - Renal artery duplex with no evidence of KENIA - Carotid artery duplex with no carotid artery stenosis (2) Diabetes mellitus: Chronic/stable - Hemoglobin a1c from November 2021 was 6.2% - Controlled on Metformin 500mg BID, continue - Check BSG AC and HS, add coverage for BSG >180 BS have been stable at 120 or less (3) Hyperlipidemia: Chronic/stable - Continue Pravastatin 20mg (4) Leukocytosis: Acute/unstable - CBC reviewed, minimal elevation of wbc at 11.32 with left shift - WBC improved today to 10.5 - UA does not appear grossly infected, Culture contaminated and has chronic frequency but no dysuria, hematuria, odor, etc. - CXR shows mild cardiomegaly w/o other acute cardiopulmonary abnormalities and pt has no respiratory symptoms Plan D/C patient home today. AM blood pressures 132/84 and 133/80 Continue Lopressor 75 mg BID Continue increaed dose f Losartan 100mg daily Continue the new medication - HCTZ 25mg daily F/up with PCP next week Total Time Total Time Spent Total Time Spent (In Minutes): 40 Discharge Plan Discharge Items Patient Disposition: Home - Self-Care Reason For Visit: HYPERTENSIVE URGENCY Discharge Diagnosis: HTN Condition on Discharge: Good Activity: Resume your previous activity Non-emergency contact: Primary Care Provider Call non-emergency contact if: you have any medication questions Follow-up/Referrals: Joy Curiel MD [Primary Care Provider] - Diet: Carb Consistent or DM2, Heart Healthy and Low Sodium (2gm) Addtl Attending Provider Instructions: You were admitted with severely elevated blood pressure. You had a renal U/S that normal with no evidence of any renal artery stenosis. You also had an U/S of your carotids that was also normal with no evidence of any significant stenosis in right or left carotids. Initially your WBC was slightly elevated, but you had no fevers, CXR and U/A were normal and repeat CBC revealed normal WBC on repeat x 2. Your other labs were stable with no abnormalities. Your magnesium level was slightly low at 1.6 and your were started on Mag oxide 400mg daily and repeat was 1.8. Your TSH level was 4.509 with normal T4 - 0.75. The Thyroid and the magnesium can be followed by your PCP. We increased your Losartan from 50mg daily to 100mg daily, continued the same dose of the Lopressor (75mg 2 x per day) and added a new medication - HCTZ (hydrochlorothiazide) 25mg one daily in the AM. Pending Studies at Discharge: No Stand-Alone Forms: My [facility] Medications and DC Order Prescriptions: New losartan 50 mg Tablet 100 mg PO QAM Qty: 60 0RF hydrochlorothiazide 25 mg Tablet 25 mg PO QAM Qty: 30 0RF Continued oxybutynin chloride 5 mg tablet 5 mg PO QPM metformin 500 mg tablet 500 mg PO BID pravastatin 20 mg tablet 20 mg PO QPM metoprolol tartrate 50 mg tablet 75 mg PO BID omega 3-thq-wue-fish oil [Fish Oil] 1,000 mg (120 mg-180 mg) Capsule 1 cap PO BID multivitamin Tablet 1 tab PO QAM aspirin 81 mg Tablet,Delayed Release (Dr/Ec) 81 mg PO QPM Discontinued losartan 50 mg tablet 50 mg PO DAILY Discharge Orders: Discharge Order (Routine); Ordered 01/04/23 Ordered By: Yulisa Mckee/Other Patient Handouts: Hypertension Dc, Low-Salt Choices, Controlling High Blood Pressure Admission Data Admit Date/Time: 01/02/23 17:03 Attending Provider: Jose Luis Logan Admit Provider: Corby West Primary Care Provider: Jyo Curiel Other Providers: Corby West Coding Level of Care Code 05912 INP/OBS DISCH >30 MIN Diagnoses Severe hypertension I10 Diabetes mellitus E11.9 Hyperlipidemia E78.5 Leukocytosis D72.829
--- NOTE | 2023-01-22 10:32 | Coding Query ---
A supporting diagnosis is required for the test/procedure performed on this patient in order for us to be reimbursed by the patient's insurance. Please provide a supporting diagnosis for the following test/procedure listed below next to the test name along with your signature. *If there is no additional diagnosis for this patient that would support the following test/procedure please document that below next to the test/procedure. Test(s)/Procedure(s) that require a supporting diagnosis: (CAROTID DOP)DUPLEX NECK ARTERY DIAGNOSIS: Provider Signature: Date: Thank you Nery [facility] Once completed, please kindly fax back to [phone] For questions please call [phone] MOHAN
== END 2023-01-04 13:47 | disposition home or self-care (01) ==
LOC: ED 12:38 → EDINP 12:38 → SUATTDRO 17:03 → 4W 18:36